=== PATIENT | male | born 1980 | race American Indian/Alaskan Native ===

== ENCOUNTER 2021-10-24 15:59 | Emergency (ER) | payer SELFPAY ==
[2021-10-24 17:17] VITALS: BP 101/65
--- NOTE | 2021-10-24 21:31 | Emergency Department Report ---
ED General Adult HPI - General Chief complaint: Pain General Stated complaint: COVID EXPOSURE Time Seen by Provider: 10/24/21 21:08 Source: patient Mode of arrival: Ambulatory Limitations: No Limitations - History of Present Illness Initial comments: Is a 40-year-old male with hx of bronchitis, who presents with family member for complaint of COVID exposure family member with similar complaint. States they have a positive COVID family member in their dwelling. Patient complains of cough body aches chills diarrhea for the past 3 days. States exposure was 1 week ago. There is no shortness of breath no wheezing no nausea vomiting or chest pain symptoms are exacerbated by environmental exposure. Symptoms are relieved by nothing tried. Patient denies fever. Patient has not had COVID screening. Patient rates symptoms at 3/10 at this time. Patient is tolerating p.o. hydration however. Patient appears well and nontoxic. - Related Data Previous Rx's Medication Instructions Recorded Last Taken Type Albuterol Mdi (or & Nicu Only) 2 puff IH QID PRN #8.5 gram 10/24/21 Unknown Rx [ProAir HFA Inhaler] Ibuprofen [Motrin 800 MG tab] 800 mg PO Q8HR PRN #30 tablet 10/24/21 Unknown Rx dexAMETHasone [Decadron] 4 mg PO BID 3 Days #6 tablet 10/24/21 Unknown Rx Allergies Allergy/AdvReac Type Severity Reaction Status Date / Time No Known Allergies Allergy Unverified 10/24/21 17:17 ED Review of Systems ROS: Stated complaint: COVID EXPOSURE Other details as noted in HPI Constitutional: malaise. denies: chills, fever Eyes: denies: eye pain, eye discharge, vision change ENT: congestion. denies: ear pain, throat pain Respiratory: cough. denies: shortness of breath, wheezing Cardiovascular: denies: chest pain, palpitations Endocrine: no symptoms reported Gastrointestinal: vomiting, diarrhea. denies: abdominal pain, nausea, cons tipation, melena Genitourinary: denies: urgency, dysuria, frequency Musculoskeletal: denies: back pain, joint swelling, arthralgia Skin: as per HPI Neurological: denies: headache, weakness, numbness, paresthesias, confusion, vertigo Psychiatric: denies: anxiety, depression Hematological/Lymphatic: denies: easy bleeding, easy bruising ED Past Medical Hx - Past Medical History Previous Medical History?: No - Surgical History Past Surgical History?: No - Medications Home Medications: Home Medications Medication Instructions Recorded Confirmed Last Taken Type Albuterol Mdi (or & Nicu Only) 2 puff IH QID PRN #8.5 gram 10/24/21 Unknown Rx [ProAir HFA Inhaler] Ibuprofen [Motrin 800 MG tab] 800 mg PO Q8HR PRN #30 tablet 10/24/21 Unknown Rx dexAMETHasone [Decadron] 4 mg PO BID 3 Days #6 tablet 10/24/21 Unknown Rx ED Physical Exam - General Limitations: No Limitations General appearance: alert, in no apparent distress - Head Head exam: Present: normocephalic, normal inspection - Eye Eye exam: Present: EOMI Pupils: Present: normal accommodation - ENT ENT exam: Present: normal orophraynx, mucous membranes moist, TM's normal bilaterally, normal external ear exam - Neck Neck exam: Present: normal inspection, full ROM. Absent: tenderness, lymphadenopathy - Respiratory Respiratory exam: Present: normal lung sounds bilaterally. Absent: respiratory distress, wheezes, stridor, chest wall tenderness - Cardiovascular Cardiovascular Exam: Present: regular rate, normal rhythm. Absent: systolic murmur, diastolic murmur, rubs, gallop - GI/Abdominal GI/Abdominal exam: Present: soft, normal bowel sounds. Absent: distended, tenderness, guarding, rebound, rigid, bruit, hernia - Rectal Rectal exam: Present: deferred - Extremities Exam Extremities exam: Present: normal inspection, full ROM, normal capillary refill - Back Exam Back exam: Present: normal inspection, full ROM. Absent: CVA tenderness (R), CVA tenderness (L) - Neurological Exam Neurological exam: Present: alert, oriented X3, CN II-XII intact, normal gait - Expanded Neurological Exam Expanded Patient oriented to: Present: person, place, time Speech: Present: fluid speech Motor strength exam: RUE: 5, LUE: 5, RLE: 5, LLE: 5 Best Eye Response (Leota): (4) open spontaneously Best Motor Response (Leota): (6) obeys commands Best Verbal Response (Leota): (5) oriented Jenniffer Total: 15 - Psychiatric Psychiatric exam: Present: normal affect, normal mood - Skin Skin exam: Present: warm, dry, intact, normal color. Absent: rash ED Course Vital Signs 10/24/21 17:16 Temperature 98.5 F Pulse Rate 75 Respiratory 18 Rate Blood Pressure 101/65 [Left] O2 Sat by Pulse 99 Oximetry ED Medical Decision Making - Medical Decision Making Patient appears nontoxic respirations are even and nonlabored lung sounds are clear throughout abdomen is nontender patient is tolerating p.o. hydration. Plan DC to home with prescriptions. Continue to hydrate. See help department for COVID screening, return to emergency department should symptoms worsen. Patient verbalizes agreement and understanding of discharge plan patient DC'd home in stable condition at this time. Critical care attestation.: If time is entered above; I have spent that time in minutes in the direct care of this critically ill patient, excluding procedure time. ED Disposition Clinical Impression: Exposure to COVID-19 virus Disposition: HOME / SELF CARE / HOMELESS Is pt being admited?: No Does the pt Need Aspirin: No Condition: Stable Instructions: Viral Respiratory Infection, [id number] Additional Instructions: Take medications as prescribed, continue to hydrate, follow-up with health department for COVID screening, return to emergency department should symptoms worsen. Prescriptions: dexAMETHasone [Decadron] 4 mg PO BID 3 Days #6 tablet Ibuprofen [Motrin 800 MG tab] 800 mg PO Q8HR PRN #30 tablet PRN Reason: pain fever Albuterol Mdi (or & Nicu Only) [ProAir HFA Inhaler] 2 puff IH QID PRN #8.5 gram PRN Reason: Shortness Of Breath [facility] Forms: Work/School Release Form(ED) Time of Disposition: 21:34
== END 2021-10-24 22:13 | disposition home or self-care (01) ==
LOC: ED 15:59
DX: R19.7 Diarrhea, unspecified (principal); R05.9 Cough, unspecified; Z20.822 Contact with and (suspected) exposure to COVID-19
CPT/HCPCS: 99282